=== PATIENT | male | born 2005 | race Hispanic/Latino ===

== ENCOUNTER 2024-07-12 20:00 | Emergency (ER) | payer SELFPAY ==
--- NOTE | ~2024-07-12 | US_ITS ---
TESTICULAR ULTRASOUND (Doppler ultrasound interrogation techniques used as needed for this exam.) Ordering provider: Alyssa Jimenez APRN History: . testicular pain and swelling . Comparison: None. FINDINGS: TESTICLES: Normal in size. The right measures 3.8x 2.3x 3.1 cm and the left measures 4.8x 2.3x 2.5 cm . Normal echogenicity bilaterally without mass lesion. Normal Doppler flow bilaterally. EPIDIDYMIDES: Normal in size. The right measures 1 cm and the left 0.8 cm. The right epididymis is ed ematous with increased vascularity. HYDROCELE: Right moderate hydrocele. VARICOCELE: The Left measuring 2 mm. The right measures 2.5 mm. OTHER ABNORMALITY: None seen. IMPRESSION: Right epididymitis. Right moderate hydrocele. . Otherwise, normal testicular ultrasound. Reviewed, dictated and finalized at location A. IMPRESSION: Right epididymitis. Right moderate hydrocele. . Otherwise, normal testicular ul trasound.
[2024-07-12 20:07] VITALS: BP 139/72; PULSE 71; RESP 18; TEMP 36.8; O2SAT 96
--- NOTE | 2024-07-12 20:56 | ED_ITS ---
HPI - Male Genitourinary General Chief complaint: Urogenital-Male <Alyssa Jimenez APRN - Last Filed: 07/13/24 00:11> Stated complaint: groin pain <Alyssa Jimenez APRN - Last Filed: 07/13/24 00:11> Time Seen by Provider: 07/12/24 20:52 <Alyssa Jimenez APRN - Last Filed: 07/13/24 00:11> History of Present Illness HPI Narrative: Patient is a 19 year old male who presents to the ER complaining of testicular pain that started after he was injured approximately 1 week ago. He reports he was playing soccer in someone fell on to his right femur. This led to his testicle being squished between his legs. Today, pt endorses continued pain in his R testicle and R groin. He denies any urinary symptoms, back pain, recent fevers. Patient denies any other medical history relevant to this ER visit. <Alyssa Jimenez APRN - Last Filed: 07/13/24 00:11> Related Data Allergies/Adverse reactions: Allergies Allergy/AdvReac Type Severity Reaction Status Date / Time No Known Allergies Allergy Verified 07/12/24 20:01 <Alyssa Jimenez APRN - Last Filed: 07/13/24 00:11> Review of Systems Review of Systems: All systems reviewed & are unremarkable except as noted in HPI and below <Alyssa Jimenez APRN - Last Filed: 07/13/24 00:11> Exam Narrative: GENERAL: Well appearing, well-nourished, non-toxic, in no acute distress. HEAD: Normocephalic, atraumatic. NECK: Supple. No adenopathy, no masses. RESPIRATORY: Airway patent, respirations nonlabored. Clear to auscultation bilaterally, no rales, rhonchi, wheezing. CARDIOVASCULAR: Regular rate and rhythm without murmurs, rubs, or gallops. Peripheral pulses 2+ and equal bilaterally. ABDOMINAL: Soft, nontender, nondistended, no hepatosplenomegaly. Normoactive BS. MUSCULOSKELETAL: Moves all extremities. Strength/ROM intact without gross deformities. SKIN: Warm, dry, normal color. No rashes. NEURO: A&O X3. Speech clear. Cranial nerves II-XII intact. No ataxic movements. PSYCHIATRIC: Appropriate mood and affect. Normal interaction. : (chaperoned by Dr. Bidr Zarate) Pt's R testicle is slightly reddened and swollen. Slightly tender with palpation. Increased pain when scrotum is elevated by healthcare provider. <Alyssa Jimenez, MORA - Last Filed: 07/13/24 00:11> Course SSRS REPORT DEVELOPER/PA Physician Supervision I agree with midlevel documentation; I performed the medical decision making component of this evaluation. I had independent [id number] time with the patient and performed my own independent evaluation and assessment. Patient does have right-sided testicular enlargement with some tenderness. Negative prehn sign. No penile pain. No blood at the urethral meatus. No overlying skin discoloration or changes. Ultrasonography of the scrotum was obtained, urinalysis ordered. He is given pain control medications. <Bird Zarate MD - Last Filed: 07/13/24 10:07> Vital Signs Vital signs: Vital Signs Temperature 36.8 C 07/12/24 20:07 Pulse Rate 71 07/12/24 20:07 Respiratory Rate 18 07/12/24 20:07 Blood Pressure 139/72 07/12/24 20:07 Pulse Oximetry 96 07/12/24 20:07 Oxygen Delivery Room Air 07/12/24 20:07 Temperature 36.8 C 07/12/24 20:07 Pulse Rate 65 07/13/24 00:36 Respiratory Rate 16 07/13/24 00:36 Blood Pressure 120/67 07/13/24 00:36 Pulse Oximetry 100 07/13/24 00:36 Oxygen Delivery Room Air 07/12/24 20:07 <Alyssa Jimenez, LEARNING AND DEVELOPMENT ADMINISTRATOR - Last Filed: 07/13/24 00:11> Vital Signs Temperature 36.8 C 07/12/24 20:07 Pulse Rate 71 07/12/24 20:07 Respiratory Rate 18 07/12/24 20:07 Blood Pressure 139/72 07/12/24 20:07 Pulse Oximetry 96 07/12/24 20:07 Oxygen Delivery Room Air 07/12/24 20:07 Temperature 36.8 C 07/12/24 20:07 Pulse Rate 65 07/13/24 00:36 Respiratory Rate 16 07/13/24 00:36 Blood Pressure 120/67 07/13/24 00:36 Pulse Oximetry 100 07/13/24 00:36 Oxygen Delivery Room Air 07/12/24 20:07 <Bird Zarate MD - Last Filed: 07/13/24 10:07> MDM - Male Genitourinary MDM Narrative Medical decision making narrative: Patient is a 19 year old male who presents to the ER complaining of testicular pain that started after he was injured approximately 1 week ago. He reports he was playing soccer in someone fell on to his right femur. This led to his testicle being squished between his legs. Today, pt endorses cont inued pain in his R testicle and R groin. He denies any urinary symptoms, back pain, recent fevers. Patient denies any other medical history relevant to this ER visit. Labs Ordered: UA, STD swabs Imaging Ordered: Ultrasound scrotum Doppler Medications Ordered: Toradol 60 mg IM, ceftriaxone 0.5 g IM, Flagyl p.o., doxycycline 100 mg p.o. Results: Patient's urinalysis indicates UTI, his scrotal ultrasound indicates Right epididymitis. Right moderate hydrocele.Otherwise, normal testicular ultrasound. Patient's STD panel came back positive for chlamydia. Diagnosis: Epididymitis, chlamydia, UTI, hydrocele Consults: urology (outpatient) Patient Education/Shared MDM: Results shared with patient. He was strongly advised to maintain hydration status upon discharge, abstain from sexual intercourse for a week, and complete his full dose of antibiotics. Patient should follow-up with his PCP as soon as possible and Urology as needed. He will be discharged home with a prescription for doxycycline. Strict return precautions provided. Patient verbalized understanding and is in agreement with plan. Vital signs stable at time of discharge. All questions answered. <Alyssa Jimenez APRN - Last Filed: 07/13/24 00:11> Differential Diagnosis Differential diagnosis: Likely urinary tract infection, urethritis, epididymitis, acute retention of urine and other (Chlamydia, gonorrhea, Trichomonas, hydrocele) <Alyssa Jimenez APRN - Last Filed: 07/13/24 00:11> Lab Data Attestation: I reviewed the patient's lab results. <Alyssa Jimenez APRN - Last Filed: 07/13/24 00:11> Labs: Lab Results 07/12/24 Range/Units 21:11 Urine Color Yellow (Yellow) Urine Appearance Cloudy H (Clear) Urine pH 5.5 (5.0-9.0) Ur Specific [place] 1.030 (1.001-1.035) Urine Protein Negative (Negative) mg/dL Urine Glucose (UA) Negative (Negative) mg/dL Urine Ketones Trace H (Negative) mg/dL Ur Blood (Man) Negative (Negative) Urine Nitrate Negative (Negative) Urine Bilirubin Negative (Negative) Urine Urobilinogen 1.0 (<2.0) mg/dL Leukocyte Esterase Rfl 2+ H (Negative) DANIELA/UL Urine RBC 0-2 (0-2) /hpf Urine WBC >100 H (0-3) /hpf Ur Squamous Epith Cells None seen (Few) /hpf Urine Bacteria None seen /hpf Urine Casts 0-2 C. trachomatis (PCR) Detected A (NOT DETECTE) N. gonorrhoeae (PCR) Not detected (NOT DETECTE) T. vaginalis (PCR) Not detected (NOT DETECTE) <Alyssa Jimenez, LEARNING AND DEVELOPMENT ADMINISTRATOR - Last Filed: 07/13/24 00:11> Lab Results 07/12/24 Range/Units 21:11 Urine Color Yellow (Yellow) Urine Appearance Cloudy H (Clear) Urine pH 5.5 (5.0-9.0) Ur Specific [place] 1.030 (1.001-1.035) Urine Protein Negative (Negative) mg/dL Urine Glucose (UA) Negative (Negative) mg/dL Urine Ketones Trace H (Negative) mg/dL Ur Blood (Man) Negative (Negative) Urine Nitrate Negative (Negative) Urine Bilirubin Negative (Negative) Urine Urobilinogen 1.0 (<2.0) mg/dL Leukocyte Esterase Rfl 2+ H (Negative) DANIELA/UL Urine RBC 0-2 (0-2) /hpf Urine WBC >100 H (0-3) /hpf Ur Squamous Epith Cells None seen (Few) /hpf Urine Bacteria None seen /hpf Urine Casts 0-2 C. trachomatis (PCR) Detected A (NOT DETECTE) N. gonorrhoeae (PCR) Not detected (NOT DETECTE) T. vaginalis (PCR) Not detected (NOT DETECTE) <Bird A. Torossian, MD - Last Filed: 07/13/24 10:07> Imaging Data Attestation: I personally reviewed and interpreted this imaging study as follows: <Alyssa Jimenez APRN - Last Filed: 07/13/24 00:11> Radiologist's impression: Impressions Scrotum Ultrasound 07/12/24 23:34 IMPRESSION: Right epididymitis. Right moderate hydrocele. . Otherwise, normal testicular ultrasound. <Alyssa Jimenez APRN - Last Filed: 07/13/24 00:11> Discharge Plan Discharge Clinical Impression: Urinary tract infection, Epididymitis, Hydrocele of testis, Chlamydia <Alyssa Jimenez APRN - Last Filed: 07/13/24 00:11> Patient Disposition: Home, Self-Care <Alyssa Jimenez APRN - Last Filed: 07/13/24 00:11> Condition: Stable <Alyssa Jimenez APRN - Last Filed: 07/13/24 00:11> Instructions: Antibiotic Form, Chlamydia (ED), Epididymitis (ED), Hidrocele (ED) <Alyssa Jimenez APRN - Last Filed: 07/13/24 00:11> Additional Instructions: Please return to the ER with any worsening symptoms. Follow-up with primary care provider as soon as possible. You may follow-up with a urologist if needed. Take all medications as prescribed. Complete your full dose of antibiotics. <Alyssa Jimenez APRN - Last Filed: 07/13/24 00:11> Patient Language: Kyrgyz <Alyssa Jimenez APRN - Last Filed: 07/13/24 00:11> Prescriptions: New doxycycline monohydrate 100 mg capsule 100 mg PO BID Qty: 14 0RF <Alyssa Jimenez APRN - Last Filed: 07/13/24 00:11> Follow-up/Referrals: Clement Chu MD [Physician] - (urology) Ion Skaggs MD [Physician] - (primary care) UNKNOWN,DOCTOR [Non-Staff] - <Alyssa Jimenez APRN - Last Filed: 07/13/24 00:11> Stand Alone Forms: Work/School Release IP <Alyssa Jimenez APRN - Last Filed: 07/13/24 00:11> Time of Disposition: 00:11 <Alyssa Jimenez APRN - Last Filed: 07/13/24 00:11> 00:11 <Bird Zarate MD - Last Filed: 07/13/24 10:07>
[2024-07-12] MEDS: KETOROLAC (*BKC) 60 MG/2 ML VIAL IM (21:11)
[2024-07-12 21:32] LABS: Add Urine Microscopic? YES; Appearance Urine Cloudy (Clear); Bacteria Urine None Seen /hpf; Bilirubin Urine Negative (Negative); Blood Urine Negative (Negative); Color Urine Yellow (Yellow); Glucose Urine UA Negative (Negative); Ketones Urine Trace mg/dL (Negative); Leukocyte Esterase Ur 2+ LEU/UL (Negative); Nitrate Urine Negative (Negative); Non Pathogenic Casts 0-2; Protein Urine Negative (Negative); RBC Urine 0-2 /hpf (0-2); Squamous Epithelial Cell Urine None Seen /hpf (Few); WBC Urine >100 /hpf (0-3); pH Urine 5.5 (5.0-9.0)
[2024-07-12] MEDS: metroNIDAZOLE 500 MG TABLET 2000 MG PO (22:32)
[2024-07-12] MEDS: cefTRIAXone 1 GM VIAL 0.5 GM IM (22:33)
[2024-07-12] MEDS: DOXYCYCLINE HYCLATE 100 MG TABLET PO (22:33)
[2024-07-12] MEDS: LIDOCAINE 1% LOCAL INJ 10 ML VIAL (22:33)
[2024-07-12 23:05] LABS: Trichomonas Vag PCR NOT DETECTED (NOT DETECTE)
[2024-07-12 23:30] LABS: Chlamydia trachomatis DETECTED (NOT DETECTE); Neisseria gonorrhoeae PCR NOT DETECTED (NOT DETECTE)
[2024-07-13 00:34] VITALS: BP 120/67; PULSE 65; RESP 18; O2SAT 100
[2024-07-13 00:36] VITALS: BP 120/67; PULSE 65; RESP 16; O2SAT 100
== END 2024-07-13 00:38 | disposition home or self-care (01) ==
PROVIDERS: Student in an Organized Health Care Education/Training Program; Emergency Provider Registered Nurse
DX: N39.0 Urinary tract infection, site not specified (principal); N45.1 Epididymitis; N43.3 Hydrocele, unspecified; A74.9 Chlamydial infection, unspecified
CPT/HCPCS: 76870; 81001; 87086; 87491; 87591; 87661; 93976; 96372; 99284; A9270; J0696; J1885; J2003

== ENCOUNTER 2025-01-20 09:08 | Emergency (ER) | payer SELFPAY ==
--- NOTE | ~2025-01-20 | XR_ITS ---
Clinical history:Injury. Pain on lateral side of left knee EXAM:X-ray knee left 3 views TECHNIQUE:3 images of the left knee were obtained. Comparisons:None available FINDINGS: [ No significant degenerative change.] [ No radiographic evidence for an acute fracture or dislocation.] [ No radiopaque foreign body.] [ No sclerotic or destructive bone lesions.] Moderate-sized suprapatellar effusion. Soft tissue swelling about the left knee. IMPRESSION: 1. [ No acute bony abnormality identified.] If symptoms persist or worsen consider a short-term follow-up study or additional imaging for further assessment. Reviewed, dictated and finalized at location Q. IMPRESSION: 1. [ No acute bony abnormality identified.] If symptoms persist or worsen consider a short-term follow-up study or addition al imaging for further assessment.
[2025-01-20 09:19] VITALS: BP 122/54; PULSE 60; RESP 18; TEMP 36.9; O2SAT 100
[2025-01-20 11:22] VITALS: BP 127/66; PULSE 73; RESP 20; TEMP 36.6; O2SAT 100
[2025-01-20 12:46] VITALS: BP 122/71; PULSE 67; RESP 14; TEMP 36.8; O2SAT 100
[2025-01-20] MEDS: IBUPROFEN 600 MG TABLET PO (13:01)
--- NOTE | 2025-01-20 13:04 | ED_ITS ---
HPI - Extremity Injury (Lower) General Chief Complaint: Extremity Injury, Lower Stated Complaint: L knee pain, Time Seen by Provider: 01/20/25 12:45 Source: patient and family Mode of arrival: ambulatory Limitations: language barrier History of Present Illness HPI Narrative: 19-year-old brought in by mother with a complains of left knee pain since yesterday. He injured himself while playing soccer complains of pain on the medial aspect of the knee with mild swelling. Has no other injuries. MD complaint: knee injury Onset (ago): day(s) (1) Type of Injury: unknown Place: street/outdoors Severity: moderate Relieving factors: nothing Exacerbating factors: nothing Associated symptoms: swelling Other symptoms: none Related Data Allergies Allergy/AdvReac Type Severity Reaction Status Date / Time No Known Allergies Allergy Verified 07/12/24 20:01 Review of Systems Review of Systems: All systems reviewed & are unremarkable except as noted in HPI and below Constitutional: Constitutional: Reports no additional constitutional complaints Eyes: Eyes: Reports no additional eye complaints ENT: Reports system reviewed and no additional complaints, except as documented Cardiovascular: Cardiovascular: Reports no additional cardiovascular complaints Respiratory: Respiratory: Reports no additional respiratory complaints Gastrointestinal: Gastrointestinal: Reports no additional gastrointestinal complaints Musculoskeletal: Musculoskeletal: Reports as per HPI Neurologic: Reports system reviewed and no additional complaints, except as documented Exam Narrative: GENERAL: Well-appearing, well-nourished, and in no acute distress. HEAD: Normocephalic, atraumatic. EYES: PERRLA and EOMI. ENT: Nares clear, no rhinorrhea or epistaxis. Mucous membranes moist. NECK: Supple. CHEST: Clear to auscultation. No respiratory distress. HEART: Regular rate and rhythm. No murmur heard. Normal peripheral pulses. EXTREMITIES: Normal range of motion. No edema. Examination of the left knee shows mild is soft tissue swelling on the medial aspect of the knee. Painful ROM. SKIN: Warm, dry, no rash. NEURO: No focal deficits. Alert and oriented x3. PSYCH: Normal mood and affect. Course Course Emergency Course: Informed mother about the possible diagnosis of ligament tear. Advised knee imm obilizer, pain medication as prescribed, follow-up with orthopedic doctor in the next 1 week Vital Signs Vital signs: Vital Signs Temperature 36.9 C 01/20/25 09:19 Pulse Rate 60 01/20/25 09:19 Respiratory Rate 18 01/20/25 09:19 Blood Pressure 122/54 L 01/20/25 09:19 Pulse Oximetry 100 01/20/25 09:19 Temperature 36.8 C 01/20/25 12:46 Pulse Rate 67 01/20/25 12:46 Respiratory Rate 14 01/20/25 12:46 Blood Pressure 122/71 01/20/25 12:46 Pulse Oximetry 100 01/20/25 12:46 Oxygen Delivery Room Air 01/20/25 12:46 MDM - Extremity Injury (Lower) Differential Diagnosis Differential diagnosis: Likely acute internal derangement of knee and fracture of femur Medical Records Attestation: I reviewed the patient's medical records. Lab Data Attestation: I reviewed the patient's lab results. Imaging Data Radiologist's impression: ITS Impressions Knee X-Ray 01/20/25 10:39 IMPRESSION: 1. [ No acute bony abnormality identified.] If symptoms persist or worsen consider a short-term follow-up study or additional imaging for further assessment. Discharge Plan Discharge Clinical Impression: Left knee sprain Qualifiers: Encounter type: initial encounter Involved ligament of knee: unspecified ligament Qualified Code(s): S83.92XA - Sprain of unspecified site of left knee, initial encounter Patient Disposition: Home Condition: Stable Instructions: ACL Injury (ED) Additional Instructions: Use the knee immobilizer all the time , follow with Orthopedic doctor Patient Language: Par[place] Prescriptions: New ibuprofen 600 mg tablet 600 mg PO TID PRN (Reason: pain) Qty: 30 0RF No Action doxycycline monohydrate 100 mg capsule 100 mg PO BID Qty: 14 0RF Follow-up/Referrals: PHYSICIAN,PROFESSOR OF FINANCE [Primary Care Provider, Internal Medicine] Irvin Rose MD [Physician, Orthopedics] Time of Disposition: 13:08
== END 2025-01-20 13:31 | disposition home or self-care (01) ==
PROVIDERS: Emergency Provider Family Medicine
DX: S83.92XA Sprain of unspecified site of left knee, initial encounter (principal); W18.42XA Slipping, tripping and stumbling without falling due to stepping into hole or opening, initial encounter
CPT/HCPCS: 73562; 99283; A9270